=== PATIENT | male | born 1960 | race Hispanic/Latino ===

== ENCOUNTER 2023-10-31 12:19 | Day surgery (SDC) | payer BC ==
[2023-10-28 11:03] VITALS: BMI 23.6
[2023-10-31] MEDS ORDERED: fentaNYL 50 mcg/mL 1 mL Vial ONE (12:58)
[2023-10-31] MEDS ORDERED: Midazolam HCl 2 mg/2 ml Vial ONE (12:59)
[2023-10-31] MEDS ORDERED: Bupivacaine PF 0.5% 30 ML VIAL ONE (12:59)
[2023-10-31] MEDS ORDERED: fentaNYL PF 100 MCG/2 ML SYRINGE ONE (13:36)
[2023-10-31] MEDS ORDERED: Lidocaine 1% PF 5 ML VIAL ONE ×2 (13:36→14:50)
[2023-10-31] MEDS ORDERED: PROPOFOL 20 ML ONE (13:36)
[2023-10-31] MEDS ORDERED: Sodium Chloride 0.9% 100 ML ONE (14:01)
[2023-10-31] MEDS ORDERED: CEFAZOLIN 2 GM VIAL ONE (14:01)
[2023-10-31] MEDS ORDERED: PROPOFOL 200 MG/20 ML VIAL ONE (14:50)
[2023-10-31] MEDS ORDERED: Ropivacaine 0.5% HCl/PF (150 MG/30 ML VIAL) ONE (14:50)
== END 2023-10-31 17:41 | disposition home or self-care (01) ==
LOC: SDC 12:19
PROVIDERS: ATTEND Orthopaedic Surgery
PROC: 0PSJ04Z Reposition Left Radius with Internal Fixation Device, Open Approach (ICD-10-PCS; principal; 2023-10-31)
DX: S52.571A Other intraarticular fracture of lower end of right radius, initial encounter for closed fracture (principal); E78.00 Pure hypercholesterolemia, unspecified; W18.39XA Other fall on same level, initial encounter; Y93.6A Activity, physical games generally associated with school recess, summer camp and children
CPT/HCPCS: C1713; J2250; J2704; J2795; J3010; J3490; S0020